=== PATIENT | female | born 1990 | race Caucasian/White ===

== ENCOUNTER → 2019-02-03 | Outpatient (CLI) | payer OTHER ==
--- NOTE | 2019-02-03 10:31 | KCIC ---
Left breast ultrasound HISTORY: 28-year-old female with history of left outer breast pain. No breast lump or any other breast symptoms reported. Family history of breast cancer of her maternal grandmother. FINDINGS: The left breast demonstrates no mass, distortion, shadowing or other suspicious abnormality. No breast cysts. There is minimal subareolar duct ectasia at the 1:00 position. No axillary adenopathy. IMPRESSION: Negative left breast ultrasound. Patient's breast symptoms be followed clinically. The patient should return for baseline screening mammography at 37 years of age per ACR guidelines. BI-RADS Category 1: Negative Electronically signed by: Ilir Stark MD (02/03/2019 10:27 AM) [id number]
== END | disposition home or self-care (01) ==
LOC: KCIC US 09:02
PROVIDERS: ATTEND Nurse Practitioner
DX: N60.42 Mammary duct ectasia of left breast (principal)
CPT/HCPCS: 76641